=== PATIENT | male | born 1945 | race Asian ===

== ENCOUNTER 2018-01-19 19:40 | Inpatient (IN) | payer MEDICARE, OTHER ==
[~2018-01-19] VITALS: Ht 162.6 cm; Wt 49.0 kg
[~2018-01-19 19:40] MED LIST: ASPI-989 PO; ATOR40TA28 PO; DOCU250C91 PO; FAMO20 PO; METO25 PO; METO25XL PO; MULT-1203 PO; OLOP15OS OU; POLY30DR OU; TAMS-1 PO; WARF2.5 PO
[2018-01-19 20:00] VITALS: BP 143/71
[2018-01-19] MEDS ORDERED: IPRATROPIUM BROMIDE 0.5 MG/2.5 ML NEB SOLUTION NEB PRN (20:15)
[2018-01-19] MEDS ORDERED: DOCUSATE SODIUM 283 MG/5 ML MINI-ENEMA PR PRN (20:15)
[2018-01-19] MEDS: DOCUSATE SODIUM 100 MG CAPSULE GT SCH (21:26)
[2018-01-19] MEDS: DOXYCYCLINE HYCLATE 100 MG CAPSULE GT SCH (21:26)
[2018-01-19] MEDS: SENNA 187 MG TABLET GT SCH (21:26)
[2018-01-19 23:48] LABS: APPEARANCE,URINE CLEAR (CLEAR); BILIRUBIN,URINE NEGATIVE (NEGATIVE); GLUCOSE, URINE (UA) NEGATIVE (NEGATIVE); KETONES,URINE NEGATIVE (NEGATIVE); LEUKOCYTE ESTERASE ,URINE NEGATIVE (NEGATIVE); NITRATE,URINE NEGATIVE (NEGATIVE); OCCULT BLOOD,URINE NEGATIVE (NEGATIVE); PROTEIN,URINE TRACE (NEGATIVE); UROBILINOGEN,URINE 0.2 mg/dL (<=1.0)
[2018-01-19 23:48] LABS: GLUCOMETER DEV NAME(LOC) 2WR 2E; GLUCOSE,POINT OF CARE 114 MG/DL (70-110)
[2018-01-20] VITALS (7 sets, daily range): BP systolic 103–142; BP diastolic 62–74
[2018-01-20] MEDS ORDERED: CARBOXYMETHYLCELLULOSE SODIUM 0.4 ML OPHTHALMIC SOLUTION [PF] OU PRN (00:15)
[2018-01-20 00:21] LABS: BACTERIA,URINE Rare /HPF (None Seen); RBC,URINE 0-2 /HPF (0-2); SQUAMOUS EPITHELIAL CELL,UR Rare /LPF (None Seen); WBC,URINE 0-2 /HPF (0-5); YEAST,URINE Rare /HPF (None Seen)
[2018-01-20] MEDS: LANSOPRAZOLE 30 MG SOLUBLE TABLET NG SCH (05:54)
[2018-01-20] MEDS: METOPROLOL TARTRATE 25 MG TABLET PEG SCH ×4 (05:54→23:43)
[2018-01-20 06:19] LABS: BASOPHILS % (AUTO) 1.1 % (0.0-2.0); EOSINOPHILS % (AUTO) 1.4 % (1.0-6.0); HEMATOCRIT 30.6 % (41-53); HEMOGLOBIN 10.6 g/dL (13.5-17.5); LYMPHOCYTES # (AUTO) 1.4 K/uL (1.0-4.8); LYMPHOCYTES % (AUTO) 12.7 % (22.0-44.0); MEAN CORPUSCULAR HEMOGLOBIN 30.6 pg (26.0-34.0); MEAN CORPUSCULAR HGB CONC 34.5 G/dL (31.0-37.0); MEAN CORPUSCULAR VOLUME 89 fL (80-100); NEUTROPHILS # (AUTO) 8.1 K/uL (1.8-7.7); NEUTROPHILS % (AUTO) 75.8 % (40.0-70.0); PLATELET COUNT (AUTO) 463 K/uL (150-450); RED BLOOD CELL COUNT(AUTO) 3.45 MIL/uL (4.50-5.90)
[2018-01-20 06:43] LABS: GLUCOMETER DEV NAME(LOC) 2WR 1B; GLUCOSE,POINT OF CARE 112 MG/DL (70-110)
[2018-01-20 07:13] LABS: ALBUMIN 2.2 g/dL (3.4-5.0); BILIRUBIN,TOTAL 0.7 mg/dL (0.1-1.0); CALCIUM, TOTAL 8.6 mg/dL (8.8-10.5); CREATININE 1.67 mg/dL (0.60-1.30); POTASSIUM 4.4 mmol/L (3.5-5.1); TOTAL PROTEIN, SERUM 8.2 g/dL (6.4-8.2)
[2018-01-20] MEDS ORDERED: MULTIVITAMINS WITH MINERALS, THERAPEUTIC 15 ML UDCUP GT SCH (09:00)
[2018-01-20] MEDS: LACTOBACILLUS ACIDOPHILUS/BULGARICUS GRANULES PACKET PEG SCH ×3 (09:24→21:03)
[2018-01-20] MEDS: DOXYCYCLINE HYCLATE 100 MG CAPSULE GT SCH ×2 (09:24→21:03)
[2018-01-20] MEDS: DOCUSATE SODIUM 100 MG CAPSULE GT SCH ×2 (09:24→21:02)
[2018-01-20] MEDS: BACLOFEN 10 MG TABLET PEG SCH ×3 (09:25→21:03)
[2018-01-20] MEDS: ATORVASTATIN CALCIUM 20 MG TABLET PEG SCH (09:25)
[2018-01-20] MEDS: MULTIVITAMINS WITH MINERALS, THERAPEUTIC 15 ML UDCUP PEG SCH (09:37)
[2018-01-20 12:35] LABS: GLUCOMETER DEV NAME(LOC) 2WR 1B; GLUCOSE,POINT OF CARE 141 MG/DL (70-110)
[2018-01-20] MEDS ORDERED: PNEUMOCOCCAL VACCINE POLYVALENT 0.5 ML VIAL [PPSV23] IM ONE (16:15)
[2018-01-20 19:09] LABS: GLUCOMETER DEV NAME(LOC) 2WR 1B; GLUCOSE,POINT OF CARE 129 MG/DL (70-110)
[2018-01-20] MEDS: SENNA 187 MG TABLET GT SCH (21:03)
[2018-01-20] MEDS: APIXABAN 2.5 MG TABLET PO SCH (21:03)
[2018-01-20 21:48] LABS: GLUCOMETER DEV NAME(LOC) 2WR 1B; GLUCOSE,POINT OF CARE 124 MG/DL (70-110)
[2018-01-20] MEDS: ACETAMINOPHEN 650 MG/20.3 ML SOLUTION UDCUP GT PRN (23:43)
[2018-01-21 05:45] VITALS: BP 129/65
[2018-01-21] MEDS: METOPROLOL TARTRATE 25 MG TABLET PEG SCH ×4 (05:47→23:30)
[2018-01-21] MEDS: LANSOPRAZOLE 30 MG SOLUBLE TABLET NG SCH (06:24)
[2018-01-21 06:43] LABS: GLUCOMETER DEV NAME(LOC) 2WR 2E; GLUCOSE,POINT OF CARE 110 MG/DL (70-110)
[2018-01-21 07:49] VITALS: BP 130/63
[2018-01-21] MEDS: LACTOBACILLUS ACIDOPHILUS/BULGARICUS GRANULES PACKET PEG SCH ×3 (08:30→20:58)
[2018-01-21] MEDS: ATORVASTATIN CALCIUM 20 MG TABLET PEG SCH (08:30)
[2018-01-21] MEDS: MULTIVITAMINS WITH MINERALS, THERAPEUTIC 15 ML UDCUP PEG SCH (08:30)
[2018-01-21] MEDS: BACLOFEN 10 MG TABLET PEG SCH ×3 (08:30→20:59)
[2018-01-21] MEDS: DOXYCYCLINE HYCLATE 100 MG CAPSULE GT SCH ×2 (08:30→20:59)
[2018-01-21] MEDS: DOCUSATE SODIUM 100 MG CAPSULE GT SCH ×2 (08:30→20:59)
[2018-01-21] MEDS: APIXABAN 2.5 MG TABLET PO SCH ×2 (08:30→20:59)
[2018-01-21 11:36] VITALS: BP 117/59
[2018-01-21 15:19] VITALS: BP 126/71
[2018-01-21] MEDS: SENNA 187 MG TABLET GT SCH (20:59)
[2018-01-21] MEDS: ACETAMINOPHEN 650 MG/20.3 ML SOLUTION UDCUP GT PRN (21:17)
[2018-01-21 23:30] VITALS: BP 120/62
[2018-01-22] VITALS (9 sets, daily range): BP systolic 89–140; BP diastolic 54–77
[2018-01-22] MEDS: LANSOPRAZOLE 30 MG SOLUBLE TABLET NG SCH (06:06)
[2018-01-22] MEDS: METOPROLOL TARTRATE 25 MG TABLET PEG SCH ×3 (06:06→18:35)
[2018-01-22] MEDS: POLYETHYLENE GLYCOL 3350 17 GM PACKET GT PRN (08:43)
[2018-01-22] MEDS: DOCUSATE SODIUM 100 MG CAPSULE GT SCH ×2 (08:43→21:03)
[2018-01-22] MEDS: BACLOFEN 10 MG TABLET PEG SCH ×3 (08:44→21:02)
[2018-01-22] MEDS: MULTIVITAMINS WITH MINERALS, THERAPEUTIC 15 ML UDCUP PEG SCH (08:44)
[2018-01-22] MEDS: LACTOBACILLUS ACIDOPHILUS/BULGARICUS GRANULES PACKET PEG SCH ×3 (08:44→21:03)
[2018-01-22] MEDS: DOXYCYCLINE HYCLATE 100 MG CAPSULE GT SCH ×2 (08:45→22:11)
[2018-01-22] MEDS: ATORVASTATIN CALCIUM 20 MG TABLET PEG SCH (08:45)
[2018-01-22] MEDS: APIXABAN 2.5 MG TABLET PO SCH ×2 (08:45→21:02)
[2018-01-22] MEDS: ACETAMINOPHEN 650 MG/20.3 ML SOLUTION UDCUP GT PRN (12:09)
[2018-01-22] MEDS: SENNA 187 MG TABLET GT SCH (21:02)
[2018-01-23 00:15] VITALS: BP 124/61
[2018-01-23] MEDS: METOPROLOL TARTRATE 25 MG TABLET PEG SCH ×5 (00:21→23:26)
[2018-01-23] MEDS ORDERED: BACL10TA PO (03:37)
[2018-01-23] MEDS ORDERED: APIX5TAB PO (03:37)
[2018-01-23] MEDS: LANSOPRAZOLE 30 MG SOLUBLE TABLET NG SCH (06:07)
[2018-01-23 06:08] VITALS: BP 117/62
[2018-01-23 06:37] LABS: CREATININE 1.58 mg/dL (0.60-1.30); POTASSIUM 4.6 mmol/L (3.5-5.1)
[2018-01-23 07:50] VITALS: BP 121/59
[2018-01-23] MEDS: ATORVASTATIN CALCIUM 20 MG TABLET PEG SCH (10:38)
[2018-01-23] MEDS: POLYETHYLENE GLYCOL 3350 17 GM PACKET GT PRN (10:38)
[2018-01-23] MEDS: MULTIVITAMINS WITH MINERALS, THERAPEUTIC 15 ML UDCUP PEG SCH (10:38)
[2018-01-23] MEDS: DOCUSATE SODIUM 100 MG CAPSULE GT SCH ×2 (10:38→20:46)
[2018-01-23] MEDS: LACTOBACILLUS ACIDOPHILUS/BULGARICUS GRANULES PACKET PEG SCH ×3 (10:38→20:46)
[2018-01-23] MEDS: DOXYCYCLINE HYCLATE 100 MG CAPSULE GT SCH ×2 (10:39→20:46)
[2018-01-23] MEDS: BACLOFEN 10 MG TABLET PEG SCH ×3 (10:39→20:46)
[2018-01-23] MEDS: APIXABAN 2.5 MG TABLET PO SCH ×2 (10:39→20:46)
[2018-01-23 12:01] VITALS: BP 134/73
[2018-01-23] MEDS: ACETAMINOPHEN 650 MG/20.3 ML SOLUTION UDCUP GT PRN (12:04)
[2018-01-23 15:33] VITALS: BP 126/66
[2018-01-23 17:48] VITALS: BP 112/66
[2018-01-23] MEDS: SENNA 187 MG TABLET GT SCH (20:46)
[2018-01-24] VITALS (9 sets, daily range): BP systolic 114–141; BP diastolic 56–83
[2018-01-24] MEDS: ACETAMINOPHEN 650 MG/20.3 ML SOLUTION UDCUP GT PRN ×2 (02:45→16:35)
[2018-01-24] MEDS: METOPROLOL TARTRATE 25 MG TABLET PEG SCH ×4 (05:50→23:27)
[2018-01-24] MEDS: LANSOPRAZOLE 30 MG SOLUBLE TABLET NG SCH (05:50)
[2018-01-24] MEDS: BACLOFEN 10 MG TABLET PEG SCH ×3 (08:14→21:09)
[2018-01-24] MEDS: APIXABAN 2.5 MG TABLET PO SCH ×2 (08:14→21:08)
[2018-01-24] MEDS: MULTIVITAMINS WITH MINERALS, THERAPEUTIC 15 ML UDCUP PEG SCH (08:14)
[2018-01-24] MEDS: ATORVASTATIN CALCIUM 20 MG TABLET PEG SCH (08:14)
[2018-01-24] MEDS: LACTOBACILLUS ACIDOPHILUS/BULGARICUS GRANULES PACKET PEG SCH ×3 (08:15→21:08)
[2018-01-24] MEDS: DOXYCYCLINE HYCLATE 100 MG CAPSULE GT SCH ×2 (08:15→21:09)
[2018-01-24] MEDS: DOCUSATE SODIUM 100 MG CAPSULE GT SCH ×2 (08:15→21:09)
[2018-01-24] MEDS ORDERED: ONDANSETRON HCL 4 MG TABLET PO PRN (10:00)
[2018-01-24] MEDS: SERTRALINE HCL 50 MG TABLET PO SCH (12:50)
[2018-01-24] MEDS: SENNA 187 MG TABLET GT SCH (21:09)
[2018-01-25] VITALS (8 sets, daily range): BP systolic 94–134; BP diastolic 50–71
[2018-01-25] MEDS: ACETAMINOPHEN 650 MG/20.3 ML SOLUTION UDCUP GT PRN (01:41)
[2018-01-25] MEDS: METOPROLOL TARTRATE 25 MG TABLET PEG SCH ×4 (06:16→20:16)
[2018-01-25] MEDS: LANSOPRAZOLE 30 MG SOLUBLE TABLET NG SCH (06:17)
[2018-01-25] MEDS: ATORVASTATIN CALCIUM 20 MG TABLET PEG SCH (09:35)
[2018-01-25] MEDS: BACLOFEN 10 MG TABLET PEG SCH ×3 (09:35→20:17)
[2018-01-25] MEDS: SERTRALINE HCL 50 MG TABLET PO SCH (09:35)
[2018-01-25] MEDS: DOXYCYCLINE HYCLATE 100 MG CAPSULE GT SCH ×2 (09:35→20:16)
[2018-01-25] MEDS: APIXABAN 2.5 MG TABLET PO SCH ×2 (09:35→20:16)
[2018-01-25] MEDS: DOCUSATE SODIUM 100 MG CAPSULE GT SCH ×2 (09:36→20:16)
[2018-01-25] MEDS: LACTOBACILLUS ACIDOPHILUS/BULGARICUS GRANULES PACKET PEG SCH ×3 (09:36→20:15)
[2018-01-25] MEDS: MULTIVITAMINS WITH MINERALS, THERAPEUTIC 15 ML UDCUP PEG SCH (09:36)
[2018-01-25] MEDS: METOCLOPRAMIDE HCL 5 MG TABLET PO SCH ×2 (15:26→20:15)
[2018-01-25] MEDS: SENNA 187 MG TABLET GT SCH (20:16)
[2018-01-26] MEDS: LANSOPRAZOLE 30 MG SOLUBLE TABLET NG SCH (06:00)
[2018-01-26 07:20] VITALS: BP 135/74
[2018-01-26] MEDS: ATORVASTATIN CALCIUM 20 MG TABLET PEG SCH (08:15)
[2018-01-26] MEDS: MULTIVITAMINS WITH MINERALS, THERAPEUTIC 15 ML UDCUP PEG SCH (08:15)
[2018-01-26] MEDS: METOPROLOL TARTRATE 25 MG TABLET PEG SCH ×4 (08:15→20:30)
[2018-01-26] MEDS: DOCUSATE SODIUM 100 MG CAPSULE GT SCH ×2 (08:15→20:30)
[2018-01-26] MEDS: BACLOFEN 10 MG TABLET PEG SCH ×3 (08:15→20:30)
[2018-01-26] MEDS: SERTRALINE HCL 50 MG TABLET PO SCH (08:16)
[2018-01-26] MEDS: DOXYCYCLINE HYCLATE 100 MG CAPSULE GT SCH ×2 (08:16→20:30)
[2018-01-26] MEDS: APIXABAN 2.5 MG TABLET PO SCH ×2 (08:16→20:30)
[2018-01-26] MEDS: METOCLOPRAMIDE HCL 5 MG TABLET PO SCH ×3 (08:16→20:30)
[2018-01-26] MEDS: LACTOBACILLUS ACIDOPHILUS/BULGARICUS GRANULES PACKET PEG SCH ×3 (08:17→20:30)
[2018-01-26 13:20] VITALS: BP 111/66
[2018-01-26 13:24] VITALS: BP 104/56
[2018-01-26 15:42] VITALS: BP_SYST 135; BP_DIAS 7; BP_DIAS 70
[2018-01-26] MEDS: SENNA 187 MG TABLET GT SCH (20:30)
[2018-01-26 21:00] VITALS: BP 128/61
[2018-01-27 01:02] VITALS: BP 122/63
[2018-01-27] MEDS: LANSOPRAZOLE 30 MG SOLUBLE TABLET NG SCH (05:42)
[2018-01-27 07:45] VITALS: BP 136/65
[2018-01-27] MEDS: METOPROLOL TARTRATE 25 MG TABLET PEG SCH ×4 (09:07→21:08)
[2018-01-27] MEDS: ATORVASTATIN CALCIUM 20 MG TABLET PEG SCH (09:07)
[2018-01-27] MEDS: APIXABAN 2.5 MG TABLET PO SCH ×2 (09:07→21:08)
[2018-01-27] MEDS: DOXYCYCLINE HYCLATE 100 MG CAPSULE GT SCH ×2 (09:08→21:08)
[2018-01-27] MEDS: BACLOFEN 10 MG TABLET PEG SCH ×3 (09:08→21:08)
[2018-01-27] MEDS: SERTRALINE HCL 50 MG TABLET PO SCH (09:08)
[2018-01-27] MEDS: METOCLOPRAMIDE HCL 5 MG TABLET PO SCH ×3 (09:08→21:08)
[2018-01-27] MEDS: LACTOBACILLUS ACIDOPHILUS/BULGARICUS GRANULES PACKET PEG SCH ×3 (09:08→21:08)
[2018-01-27] MEDS: DOCUSATE SODIUM 100 MG CAPSULE GT SCH ×2 (09:08→21:08)
[2018-01-27] MEDS: MULTIVITAMINS WITH MINERALS, THERAPEUTIC 15 ML UDCUP PEG SCH (09:08)
[2018-01-27 13:40] VITALS: BP 134/60
[2018-01-27 18:20] VITALS: BP 144/65
[2018-01-27 21:06] VITALS: BP 123/75
[2018-01-27] MEDS: SENNA 187 MG TABLET GT SCH (21:08)
[2018-01-28 00:17] VITALS: BP 135/61
[2018-01-28] MEDS: LANSOPRAZOLE 30 MG SOLUBLE TABLET NG SCH (06:09)
[2018-01-28 07:05] VITALS: BP 130/66
[2018-01-28] MEDS: DOCUSATE SODIUM 100 MG CAPSULE GT SCH ×2 (09:31→21:23)
[2018-01-28] MEDS: DOXYCYCLINE HYCLATE 100 MG CAPSULE GT SCH ×2 (09:32→21:23)
[2018-01-28] MEDS: MULTIVITAMINS WITH MINERALS, THERAPEUTIC 15 ML UDCUP PEG SCH (09:32)
[2018-01-28] MEDS: LACTOBACILLUS ACIDOPHILUS/BULGARICUS GRANULES PACKET PEG SCH ×3 (09:32→21:25)
[2018-01-28] MEDS: BACLOFEN 10 MG TABLET PEG SCH ×3 (09:32→21:23)
[2018-01-28] MEDS: ATORVASTATIN CALCIUM 20 MG TABLET PEG SCH (09:32)
[2018-01-28] MEDS: METOCLOPRAMIDE HCL 5 MG TABLET PO SCH ×3 (09:32→21:23)
[2018-01-28] MEDS: SERTRALINE HCL 50 MG TABLET PO SCH (09:33)
[2018-01-28] MEDS: METOPROLOL TARTRATE 25 MG TABLET PEG SCH ×4 (09:33→21:23)
[2018-01-28] MEDS: APIXABAN 2.5 MG TABLET PO SCH ×2 (09:33→21:23)
[2018-01-28] MEDS ORDERED: ONDANSETRON HCL 4 MG/2 ML VIAL IVP PRN (12:45)
[2018-01-28] MEDS ORDERED: ACETAMINOPHEN 325 MG TABLET PO PRN (12:45)
[2018-01-28] MEDS ORDERED: IPRATROPIUM BROMIDE 0.5 MG/2.5 ML NEB SOLUTION NEB PRN (12:45)
[2018-01-28] MEDS ORDERED: 0.9% SODIUM CHLORIDE 10 ML SYRINGE IVP PRN (12:45)
[2018-01-28 13:50] VITALS: BP 138/70
[2018-01-28 15:45] VITALS: BP 129/66
[2018-01-28] MEDS ORDERED: RAMIPRIL 1.25 MG CAPSULE PO SCH (21:00)
[2018-01-28 21:20] VITALS: BP 124/72
[2018-01-28] MEDS: SENNA 187 MG TABLET GT SCH (21:23)
[2018-01-29 01:39] VITALS: BP 128/70
[2018-01-29] MEDS: LANSOPRAZOLE 30 MG SOLUBLE TABLET NG SCH (06:18)
[2018-01-29 07:30] VITALS: BP 122/65
[2018-01-29 07:32] LABS: BASOPHILS % (AUTO) 2.5 % (0.0-2.0); EOSINOPHILS % (AUTO) 3.5 % (1.0-6.0); HEMATOCRIT 32.5 % (41-53); LYMPHOCYTES # (AUTO) 1.6 K/uL (1.0-4.8); LYMPHOCYTES % (AUTO) 21.4 % (22.0-44.0); MEAN CORPUSCULAR HEMOGLOBIN 29.6 pg (26.0-34.0); MEAN CORPUSCULAR HGB CONC 33.7 G/dL (31.0-37.0); MEAN CORPUSCULAR VOLUME 88 fL (80-100); MONOCYTES # (AUTO) 0.8 K/uL (0.1-1.0); MONOCYTES % (AUTO) 10.8 % (2.0-9.0); NEUTROPHILS # (AUTO) 4.7 K/uL (1.8-7.7); NEUTROPHILS % (AUTO) 61.8 % (40.0-70.0); PLATELET COUNT (AUTO) 395 K/uL (150-450); RED BLOOD CELL COUNT(AUTO) 3.71 MIL/uL (4.50-5.90); RED CELL DISTRIBUTION WIDTH 15.2 % (11.5-14.5)
[2018-01-29 07:40] LABS: HEMOGLOBIN A1C 5.7 % (4.5-6.2)
[2018-01-29 07:59] LABS: CHOL/HDL RATIO 2.3 (4.2-7.3); CREATININE 1.56 mg/dL (0.60-1.30); PHOSPHORUS 3.4 mg/dL (2.5-4.9); POTASSIUM 4.2 mmol/L (3.5-5.1); THYROID STIMULATING HORMONE 1.84 uIU/mL (0.36-3.74)
[2018-01-29 08:05] LABS: % IRON SATURATION 23.6 % (30-44); PROSTATE SPECIFIC ANTIGEN 0.29 ng/mL (0.00-4.00)
[2018-01-29] MEDS: DOCUSATE SODIUM 100 MG CAPSULE GT SCH ×2 (08:21→20:57)
[2018-01-29] MEDS: SERTRALINE HCL 50 MG TABLET PO SCH (08:21)
[2018-01-29] MEDS: METOCLOPRAMIDE HCL 5 MG TABLET PO SCH ×3 (08:21→20:57)
[2018-01-29] MEDS: DOXYCYCLINE HYCLATE 100 MG CAPSULE GT SCH (08:21)
[2018-01-29] MEDS: APIXABAN 2.5 MG TABLET PO SCH ×2 (08:21→20:57)
[2018-01-29] MEDS: METOPROLOL TARTRATE 25 MG TABLET PEG SCH ×4 (08:21→20:57)
[2018-01-29] MEDS: BACLOFEN 10 MG TABLET PEG SCH ×3 (08:21→20:57)
[2018-01-29] MEDS: LACTOBACILLUS ACIDOPHILUS/BULGARICUS GRANULES PACKET PEG SCH ×3 (08:21→20:57)
[2018-01-29] MEDS: MULTIVITAMINS WITH MINERALS, THERAPEUTIC 15 ML UDCUP PEG SCH (08:22)
[2018-01-29] MEDS: ATORVASTATIN CALCIUM 20 MG TABLET PEG SCH (08:23)
[2018-01-29 09:22] LABS: ERYTHROCYTE SEDIMENTATION RATE 96 MM/HR (0-15)
[2018-01-29 16:10] VITALS: BP 126/73
[2018-01-29] MEDS: SENNA 187 MG TABLET GT SCH (20:57)
[2018-01-29 20:59] VITALS: BP 136/64
[2018-01-30 06:00] VITALS: BP 130/62
[2018-01-30] MEDS: LANSOPRAZOLE 30 MG SOLUBLE TABLET NG SCH (06:10)
[2018-01-30 07:38] VITALS: BP 134/74
[2018-01-30 09:30] LABS: ALBUMIN 2.6 g/dL (3.4-5.0); BILIRUBIN,TOTAL 0.4 mg/dL (0.1-1.0); CALCIUM, TOTAL 8.7 mg/dL (8.8-10.5); CREATININE 1.55 mg/dL (0.60-1.30); POTASSIUM 4.1 mmol/L (3.5-5.1); TOTAL PROTEIN, SERUM 8.2 g/dL (6.4-8.2)
[2018-01-30] MEDS: SERTRALINE HCL 50 MG TABLET PO SCH (09:33)
[2018-01-30] MEDS: ATORVASTATIN CALCIUM 20 MG TABLET PEG SCH (09:33)
[2018-01-30] MEDS: APIXABAN 2.5 MG TABLET PO SCH ×2 (09:34→20:45)
[2018-01-30] MEDS: MULTIVITAMINS WITH MINERALS, THERAPEUTIC 15 ML UDCUP PEG SCH (09:34)
[2018-01-30] MEDS: BACLOFEN 10 MG TABLET PEG SCH ×3 (09:34→20:45)
[2018-01-30] MEDS: LACTOBACILLUS ACIDOPHILUS/BULGARICUS GRANULES PACKET PEG SCH ×3 (09:34→20:44)
[2018-01-30] MEDS: DOCUSATE SODIUM 100 MG CAPSULE GT SCH ×2 (09:34→20:45)
[2018-01-30] MEDS: METOPROLOL TARTRATE 25 MG TABLET PEG SCH ×4 (09:34→20:44)
[2018-01-30] MEDS: METOCLOPRAMIDE HCL 5 MG TABLET PO SCH ×3 (09:34→20:45)
[2018-01-30 13:50] VITALS: BP 132/69
[2018-01-30 15:24] VITALS: BP 137/71
[2018-01-30 20:45] VITALS: BP 125/69
[2018-01-30] MEDS: SENNA 187 MG TABLET GT SCH (20:45)
[2018-01-31] VITALS (7 sets, daily range): BP systolic 98–141; BP diastolic 63–77
[2018-01-31] MEDS: LANSOPRAZOLE 30 MG SOLUBLE TABLET NG SCH (06:22)
[2018-01-31 07:23] LABS: ALBUMIN 2.6 g/dL (3.4-5.0); BILIRUBIN,TOTAL 0.5 mg/dL (0.1-1.0); CALCIUM, TOTAL 9.1 mg/dL (8.8-10.5); CREATININE 1.54 mg/dL (0.60-1.30); POTASSIUM 4.1 mmol/L (3.5-5.1); TOTAL PROTEIN, SERUM 8.3 g/dL (6.4-8.2)
[2018-01-31] MEDS: BACLOFEN 10 MG TABLET PEG SCH ×3 (09:26→20:24)
[2018-01-31] MEDS: SERTRALINE HCL 50 MG TABLET PO SCH (09:26)
[2018-01-31] MEDS: LACTOBACILLUS ACIDOPHILUS/BULGARICUS GRANULES PACKET PEG SCH ×3 (09:26→20:24)
[2018-01-31] MEDS: APIXABAN 2.5 MG TABLET PO SCH ×2 (09:26→20:24)
[2018-01-31] MEDS: MULTIVITAMINS WITH MINERALS, THERAPEUTIC 15 ML UDCUP PEG SCH (09:26)
[2018-01-31] MEDS: DOCUSATE SODIUM 100 MG CAPSULE GT SCH ×2 (09:27→20:24)
[2018-01-31] MEDS: ATORVASTATIN CALCIUM 20 MG TABLET PEG SCH (09:27)
[2018-01-31] MEDS: METOPROLOL TARTRATE 25 MG TABLET PEG SCH ×4 (09:27→20:24)
[2018-01-31] MEDS: METOCLOPRAMIDE HCL 5 MG TABLET PO SCH ×2 (09:27→16:57)
[2018-01-31] MEDS: SENNA 187 MG TABLET GT SCH (20:24)
[2018-01-31] MEDS ORDERED: ONDANSETRON HCL 4 MG TABLET GT PRN (20:42)
[2018-01-31] MEDS: METOCLOPRAMIDE 10 MG/10 ML GT SCH (21:22)
[2018-01-31] MEDS: [UNRECOGNIZED DRUG - OTHER] GT SCH (21:22)
[2018-01-31] MEDS: APIXABAN 2.5 MG TABLET GT SCH (21:23)
[2018-02-01 00:09] VITALS: BP 119/53
[2018-02-01] MEDS: LANSOPRAZOLE 30 MG SOLUBLE TABLET NG SCH (05:49)
[2018-02-01 07:30] LABS: ALBUMIN 2.6 g/dL (3.4-5.0); BILIRUBIN,TOTAL 0.5 mg/dL (0.1-1.0); CALCIUM, TOTAL 8.9 mg/dL (8.8-10.5); CREATININE 1.65 mg/dL (0.60-1.30); POTASSIUM 4.1 mmol/L (3.5-5.1); TOTAL PROTEIN, SERUM 8.1 g/dL (6.4-8.2)
[2018-02-01 07:40] VITALS: BP 122/59
[2018-02-01] MEDS: DOCUSATE SODIUM 100 MG CAPSULE GT SCH ×2 (08:41→22:01)
[2018-02-01] MEDS: LACTOBACILLUS ACIDOPHILUS/BULGARICUS GRANULES PACKET PEG SCH ×3 (08:41→22:00)
[2018-02-01] MEDS: MULTIVITAMINS WITH MINERALS, THERAPEUTIC 15 ML UDCUP PEG SCH (08:41)
[2018-02-01] MEDS: ATORVASTATIN CALCIUM 20 MG TABLET PEG SCH (08:42)
[2018-02-01] MEDS: BACLOFEN 10 MG TABLET PEG SCH ×3 (08:42→22:01)
[2018-02-01] MEDS: APIXABAN 2.5 MG TABLET GT SCH ×2 (08:42→22:00)
[2018-02-01] MEDS: SERTRALINE HCL 50 MG TABLET GT SCH (08:42)
[2018-02-01] MEDS: METOCLOPRAMIDE 10 MG/10 ML GT SCH ×3 (08:42→22:01)
[2018-02-01] MEDS: [UNRECOGNIZED DRUG - OTHER] GT SCH ×3 (08:42→22:01)
[2018-02-01] MEDS: METOPROLOL TARTRATE 25 MG TABLET PEG SCH ×4 (08:42→22:00)
[2018-02-01 13:50] VITALS: BP 126/66
[2018-02-01 15:00] VITALS: BP 131/71
[2018-02-01 15:11] VITALS: BP 131/71
[2018-02-01] MEDS: CETIRIZINE HCL 10 MG TABLET PO SCH (15:49)
[2018-02-01] MEDS: SENNA 187 MG TABLET GT SCH (22:01)
[2018-02-02 00:35] VITALS: BP 116/58
[2018-02-02] MEDS: LANSOPRAZOLE 30 MG SOLUBLE TABLET NG SCH (06:01)
[2018-02-02 06:53] LABS: ALBUMIN 2.6 g/dL (3.4-5.0); BILIRUBIN,TOTAL 0.4 mg/dL (0.1-1.0); CALCIUM, TOTAL 8.8 mg/dL (8.8-10.5); CREATININE 1.55 mg/dL (0.60-1.30); POTASSIUM 4.1 mmol/L (3.5-5.1); TOTAL PROTEIN, SERUM 8.1 g/dL (6.4-8.2)
[2018-02-02 07:13] VITALS: BP 123/64
[2018-02-02] MEDS: LACTOBACILLUS ACIDOPHILUS/BULGARICUS GRANULES PACKET PEG SCH ×3 (07:56→21:34)
[2018-02-02] MEDS: METOPROLOL TARTRATE 25 MG TABLET PEG SCH ×4 (07:57→21:33)
[2018-02-02] MEDS: ATORVASTATIN CALCIUM 20 MG TABLET PEG SCH (07:57)
[2018-02-02] MEDS: SERTRALINE HCL 50 MG TABLET GT SCH (07:57)
[2018-02-02] MEDS: CETIRIZINE HCL 10 MG TABLET PO SCH (07:57)
[2018-02-02] MEDS: DOCUSATE SODIUM 100 MG CAPSULE GT SCH ×2 (07:57→21:00)
[2018-02-02] MEDS: MULTIVITAMINS WITH MINERALS, THERAPEUTIC 15 ML UDCUP PEG SCH (07:57)
[2018-02-02] MEDS: METOCLOPRAMIDE 10 MG/10 ML GT SCH ×3 (07:57→21:33)
[2018-02-02] MEDS: BACLOFEN 10 MG TABLET PEG SCH ×3 (07:57→21:34)
[2018-02-02] MEDS: [UNRECOGNIZED DRUG - OTHER] GT SCH ×3 (07:57→21:33)
[2018-02-02] MEDS: APIXABAN 2.5 MG TABLET GT SCH ×2 (07:57→21:34)
[2018-02-02 13:15] VITALS: BP 129/67
[2018-02-02 15:32] VITALS: BP 126/68
[2018-02-02] MEDS: SENNA 187 MG TABLET GT SCH (21:00)
[2018-02-02 21:30] VITALS: BP 137/72
[2018-02-03] VITALS (8 sets, daily range): BP systolic 103–139; BP diastolic 58–72
[2018-02-03] MEDS: LANSOPRAZOLE 30 MG SOLUBLE TABLET NG SCH (05:31)
[2018-02-03 07:33] LABS: ALBUMIN 2.6 g/dL (3.4-5.0); BILIRUBIN,TOTAL 0.4 mg/dL (0.1-1.0); CALCIUM, TOTAL 8.9 mg/dL (8.8-10.5); CREATININE 1.55 mg/dL (0.60-1.30); POTASSIUM 4.1 mmol/L (3.5-5.1); TOTAL PROTEIN, SERUM 7.9 g/dL (6.4-8.2)
[2018-02-03] MEDS: METOPROLOL TARTRATE 25 MG TABLET PEG SCH ×4 (09:00→21:01)
[2018-02-03] MEDS: DOCUSATE SODIUM 100 MG CAPSULE GT SCH ×2 (09:35→21:01)
[2018-02-03] MEDS: MULTIVITAMINS WITH MINERALS, THERAPEUTIC 15 ML UDCUP PEG SCH (09:35)
[2018-02-03] MEDS: BACLOFEN 10 MG TABLET PEG SCH ×3 (09:35→21:01)
[2018-02-03] MEDS: ATORVASTATIN CALCIUM 20 MG TABLET PEG SCH (09:35)
[2018-02-03] MEDS: SERTRALINE HCL 50 MG TABLET GT SCH (09:35)
[2018-02-03] MEDS: CETIRIZINE HCL 10 MG TABLET PO SCH (09:35)
[2018-02-03] MEDS: APIXABAN 2.5 MG TABLET GT SCH ×2 (09:35→21:01)
[2018-02-03] MEDS: LACTOBACILLUS ACIDOPHILUS/BULGARICUS GRANULES PACKET PEG SCH ×3 (09:36→21:01)
[2018-02-03] MEDS: [UNRECOGNIZED DRUG - OTHER] GT SCH ×3 (09:38→21:01)
[2018-02-03] MEDS: METOCLOPRAMIDE 10 MG/10 ML GT SCH ×3 (09:38→21:01)
[2018-02-03] MEDS: SENNA 187 MG TABLET GT SCH (21:01)
[2018-02-04 03:21] VITALS: BP 124/65
[2018-02-04 07:21] LABS: ALBUMIN 2.6 g/dL (3.4-5.0); BILIRUBIN,TOTAL 0.4 mg/dL (0.1-1.0); CALCIUM, TOTAL 8.5 mg/dL (8.8-10.5); CREATININE 1.36 mg/dL (0.60-1.30); POTASSIUM 4.2 mmol/L (3.5-5.1); TOTAL PROTEIN, SERUM 7.8 g/dL (6.4-8.2)
[2018-02-04 08:00] VITALS: BP 133/78
[2018-02-04] MEDS: ATORVASTATIN CALCIUM 20 MG TABLET PEG SCH (09:09)
[2018-02-04] MEDS: APIXABAN 2.5 MG TABLET GT SCH ×2 (09:09→20:43)
[2018-02-04] MEDS: DOCUSATE SODIUM 100 MG CAPSULE GT SCH ×2 (09:09→20:45)
[2018-02-04] MEDS: METOPROLOL TARTRATE 25 MG TABLET PEG SCH ×4 (09:09→20:43)
[2018-02-04] MEDS: CETIRIZINE HCL 10 MG TABLET PO SCH (09:09)
[2018-02-04] MEDS: [UNRECOGNIZED DRUG - OTHER] GT SCH ×3 (09:10→20:43)
[2018-02-04] MEDS: BACLOFEN 10 MG TABLET PEG SCH ×3 (09:10→20:43)
[2018-02-04] MEDS: METOCLOPRAMIDE 10 MG/10 ML GT SCH ×3 (09:10→20:43)
[2018-02-04] MEDS: LACTOBACILLUS ACIDOPHILUS/BULGARICUS GRANULES PACKET PEG SCH ×3 (09:10→20:44)
[2018-02-04] MEDS: SERTRALINE HCL 50 MG TABLET GT SCH (09:10)
[2018-02-04] MEDS: LANSOPRAZOLE 30 MG SOLUBLE TABLET NG SCH (09:11)
[2018-02-04] MEDS: MULTIVITAMINS WITH MINERALS, THERAPEUTIC 15 ML UDCUP PEG SCH (09:13)
[2018-02-04 13:32] VITALS: BP 127/74
[2018-02-04 15:35] VITALS: BP 125/76
[2018-02-04 20:40] VITALS: BP 133/75
[2018-02-04] MEDS: SENNA 187 MG TABLET GT SCH (20:43)
[2018-02-05 00:02] VITALS: BP 125/63
[2018-02-05] MEDS: LANSOPRAZOLE 30 MG SOLUBLE TABLET NG SCH (05:32)
[2018-02-05 07:10] VITALS: BP 144/73
[2018-02-05] MEDS: SERTRALINE HCL 50 MG TABLET GT SCH (08:31)
[2018-02-05] MEDS: MULTIVITAMINS WITH MINERALS, THERAPEUTIC 15 ML UDCUP PEG SCH (08:31)
[2018-02-05] MEDS: [UNRECOGNIZED DRUG - OTHER] GT SCH ×2 (08:31→16:14)
[2018-02-05] MEDS: METOCLOPRAMIDE 10 MG/10 ML GT SCH ×2 (08:31→16:14)
[2018-02-05] MEDS: CETIRIZINE HCL 10 MG TABLET PO SCH (08:31)
[2018-02-05] MEDS: LACTOBACILLUS ACIDOPHILUS/BULGARICUS GRANULES PACKET PEG SCH ×2 (08:31→16:13)
[2018-02-05] MEDS: ATORVASTATIN CALCIUM 20 MG TABLET PEG SCH (08:31)
[2018-02-05] MEDS: DOCUSATE SODIUM 100 MG CAPSULE GT SCH (08:32)
[2018-02-05] MEDS: METOPROLOL TARTRATE 25 MG TABLET PEG SCH ×3 (08:32→16:14)
[2018-02-05] MEDS: BACLOFEN 10 MG TABLET PEG SCH ×2 (08:32→16:13)
[2018-02-05] MEDS: APIXABAN 2.5 MG TABLET GT SCH (08:32)
[2018-02-05 12:31] VITALS: BP 133/72
[2018-02-05 15:45] VITALS: BP 130/74
[2018-02-05] MEDS ORDERED: POLYETHYLENE GLYCOL 3350 17 GM PACKET PO PRN (16:30)
[2018-02-05] MEDS ORDERED: ONDANSETRON HCL 4 MG TABLET PO PRN (16:42)
[2018-02-05 21:04] VITALS: BP 116/60
[2018-02-05] MEDS: BACLOFEN 10 MG TABLET PO SCH (21:06)
[2018-02-05] MEDS: METOPROLOL TARTRATE 25 MG TABLET PO SCH (21:06)
[2018-02-05] MEDS: LACTOBACILLUS ACIDOPHILUS/BULGARICUS GRANULES PACKET PO SCH (21:06)
[2018-02-05] MEDS: SENNA 187 MG TABLET PO SCH (21:07)
[2018-02-05] MEDS: DOCUSATE SODIUM 100 MG CAPSULE PO SCH (21:07)
[2018-02-05] MEDS: APIXABAN 2.5 MG TABLET PO SCH (21:07)
[2018-02-05] MEDS: METOCLOPRAMIDE HCL 5 MG TABLET PO SCH (21:09)
[2018-02-06] MEDS: LANSOPRAZOLE 30 MG CAPSULE PO SCH (06:22)
[2018-02-06 06:35] VITALS: BP 125/67
[2018-02-06 07:34] VITALS: BP 122/70
[2018-02-06] MEDS: MULTIVITAMINS WITH MINERALS, THERAPEUTIC TABLET PO SCH (08:05)
[2018-02-06] MEDS: ATORVASTATIN CALCIUM 20 MG TABLET PO SCH (08:05)
[2018-02-06] MEDS: SERTRALINE HCL 50 MG TABLET PO SCH (08:05)
[2018-02-06] MEDS: DOCUSATE SODIUM 100 MG CAPSULE PO SCH ×2 (08:05→21:17)
[2018-02-06] MEDS: CETIRIZINE HCL 10 MG TABLET PO SCH (08:05)
[2018-02-06] MEDS: LACTOBACILLUS ACIDOPHILUS/BULGARICUS GRANULES PACKET PO SCH ×3 (08:06→21:17)
[2018-02-06] MEDS: METOCLOPRAMIDE HCL 5 MG TABLET PO SCH ×3 (08:06→21:18)
[2018-02-06] MEDS: BACLOFEN 10 MG TABLET PO SCH ×3 (08:06→21:18)
[2018-02-06] MEDS: METOPROLOL TARTRATE 25 MG TABLET PO SCH ×4 (08:06→21:18)
[2018-02-06] MEDS: APIXABAN 2.5 MG TABLET PO SCH ×2 (08:06→21:17)
[2018-02-06 13:12] VITALS: BP 128/71
[2018-02-06 15:00] VITALS: BP 124/71
[2018-02-06 15:55] VITALS: BP 127/74
[2018-02-06] MEDS: SENNA 187 MG TABLET PO SCH (21:17)
[2018-02-07] VITALS: BP 116/59
[2018-02-07] MEDS: LANSOPRAZOLE 30 MG CAPSULE PO SCH (06:36)
[2018-02-07 07:45] VITALS: BP 123/67
[2018-02-07] MEDS: ATORVASTATIN CALCIUM 20 MG TABLET PO SCH (08:16)
[2018-02-07] MEDS: SERTRALINE HCL 50 MG TABLET PO SCH (08:16)
[2018-02-07] MEDS: BACLOFEN 10 MG TABLET PO SCH ×3 (08:16→20:52)
[2018-02-07] MEDS: LACTOBACILLUS ACIDOPHILUS/BULGARICUS GRANULES PACKET PO SCH ×3 (08:16→20:52)
[2018-02-07] MEDS: DOCUSATE SODIUM 100 MG CAPSULE PO SCH ×2 (08:16→20:52)
[2018-02-07] MEDS: MULTIVITAMINS WITH MINERALS, THERAPEUTIC TABLET PO SCH (08:16)
[2018-02-07] MEDS: METOPROLOL TARTRATE 25 MG TABLET PO SCH ×4 (08:16→20:55)
[2018-02-07] MEDS: APIXABAN 2.5 MG TABLET PO SCH ×2 (08:16→20:52)
[2018-02-07] MEDS: CETIRIZINE HCL 10 MG TABLET PO SCH (08:17)
[2018-02-07] MEDS: METOCLOPRAMIDE HCL 5 MG TABLET PO SCH ×3 (08:17→20:51)
[2018-02-07 12:55] VITALS: BP 129/87
[2018-02-07 16:15] VITALS: BP 119/65
[2018-02-07 20:49] VITALS: BP 128/77
[2018-02-07] MEDS: SENNA 187 MG TABLET PO SCH (20:51)
[2018-02-07] MEDS: MIRTAZAPINE 15 MG TABLET PO SCH (20:51)
[2018-02-07 23:00] VITALS: BP 117/65
[2018-02-08] MEDS: ACETAMINOPHEN 325 MG TABLET PO PRN (04:24)
[2018-02-08] MEDS: LANSOPRAZOLE 30 MG CAPSULE PO SCH (04:24)
[2018-02-08] MEDS: DOCUSATE SODIUM 100 MG CAPSULE PO SCH ×2 (08:05→20:52)
[2018-02-08] MEDS: APIXABAN 2.5 MG TABLET PO SCH ×2 (08:06→20:53)
[2018-02-08] MEDS: ATORVASTATIN CALCIUM 20 MG TABLET PO SCH (08:06)
[2018-02-08] MEDS: METOCLOPRAMIDE HCL 5 MG TABLET PO SCH ×3 (08:06→20:53)
[2018-02-08] MEDS: BACLOFEN 10 MG TABLET PO SCH ×3 (08:06→20:53)
[2018-02-08] MEDS: MULTIVITAMINS WITH MINERALS, THERAPEUTIC TABLET PO SCH (08:06)
[2018-02-08] MEDS: METOPROLOL TARTRATE 25 MG TABLET PO SCH ×4 (08:06→20:53)
[2018-02-08] MEDS: CETIRIZINE HCL 10 MG TABLET PO SCH (08:06)
[2018-02-08] MEDS: LACTOBACILLUS ACIDOPHILUS/BULGARICUS GRANULES PACKET PO SCH ×3 (08:06→20:53)
[2018-02-08 08:20] VITALS: BP 134/66
[2018-02-08 13:08] LABS: GLUCOMETER DEV NAME(LOC) 2WR 2E; GLUCOSE,POINT OF CARE 142 MG/DL (70-110)
[2018-02-08 13:43] VITALS: BP 129/72
[2018-02-08 16:21] VITALS: BP 121/61
[2018-02-08] MEDS: SENNA 187 MG TABLET PO SCH (20:53)
[2018-02-08] MEDS: MIRTAZAPINE 15 MG TABLET PO SCH (20:53)
[2018-02-08 21:00] VITALS: BP 125/68
[2018-02-09] MEDS: LANSOPRAZOLE 30 MG CAPSULE PO SCH (06:19)
[2018-02-09 06:23] VITALS: BP 126/65
[2018-02-09 07:30] VITALS: BP 118/75
[2018-02-09] MEDS: METOPROLOL TARTRATE 25 MG TABLET PO SCH ×4 (09:00→20:52)
[2018-02-09] MEDS: METOCLOPRAMIDE HCL 5 MG TABLET PO SCH ×3 (09:20→20:55)
[2018-02-09] MEDS: ATORVASTATIN CALCIUM 20 MG TABLET PO SCH (09:20)
[2018-02-09] MEDS: MULTIVITAMINS WITH MINERALS, THERAPEUTIC TABLET PO SCH (09:20)
[2018-02-09] MEDS: CETIRIZINE HCL 10 MG TABLET PO SCH (09:20)
[2018-02-09] MEDS: APIXABAN 2.5 MG TABLET PO SCH ×2 (09:20→20:53)
[2018-02-09] MEDS: BACLOFEN 10 MG TABLET PO SCH ×3 (09:21→20:53)
[2018-02-09] MEDS: DOCUSATE SODIUM 100 MG CAPSULE PO SCH ×2 (09:21→20:53)
[2018-02-09 15:20] VITALS: BP 131/85
[2018-02-09] MEDS: SENNA 187 MG TABLET PO SCH (20:52)
[2018-02-09 20:53] VITALS: BP 121/69
[2018-02-09] MEDS: MIRTAZAPINE 15 MG TABLET PO SCH (20:53)
[2018-02-10 01:07] VITALS: BP 127/66
[2018-02-10] MEDS: LANSOPRAZOLE 30 MG CAPSULE PO SCH (06:03)
[2018-02-10] MEDS: ATORVASTATIN CALCIUM 20 MG TABLET PO SCH (08:13)
[2018-02-10] MEDS: BACLOFEN 10 MG TABLET PO SCH ×3 (08:13→20:57)
[2018-02-10] MEDS: CETIRIZINE HCL 10 MG TABLET PO SCH (08:13)
[2018-02-10] MEDS: METOPROLOL TARTRATE 25 MG TABLET PO SCH ×4 (08:13→20:57)
[2018-02-10] MEDS: METOCLOPRAMIDE HCL 5 MG TABLET PO SCH (08:13)
[2018-02-10] MEDS: APIXABAN 2.5 MG TABLET PO SCH ×2 (08:13→20:57)
[2018-02-10] MEDS: DOCUSATE SODIUM 100 MG CAPSULE PO SCH ×2 (08:13→20:57)
[2018-02-10] MEDS: MULTIVITAMINS WITH MINERALS, THERAPEUTIC TABLET PO SCH (08:13)
[2018-02-10] MEDS: LACTOBACILLUS ACIDOPHILUS/BULGARICUS TABLET PO SCH ×3 (08:13→20:57)
[2018-02-10 08:15] VITALS: BP 131/81
[2018-02-10] MEDS: ACETAMINOPHEN 325 MG TABLET PO PRN (08:32)
[2018-02-10 10:56] LABS: APPEARANCE,URINE CLEAR (CLEAR); BILIRUBIN,URINE NEGATIVE (NEGATIVE); GLUCOSE, URINE (UA) NEGATIVE (NEGATIVE); KETONES,URINE NEGATIVE (NEGATIVE); LEUKOCYTE ESTERASE ,URINE NEGATIVE (NEGATIVE); NITRATE,URINE NEGATIVE (NEGATIVE); OCCULT BLOOD,URINE NEGATIVE (NEGATIVE); PROTEIN,URINE TRACE (NEGATIVE); UROBILINOGEN,URINE 0.2 mg/dL (<=1.0)
[2018-02-10 11:33] LABS: BACTERIA,URINE None Seen /HPF (None Seen); RBC,URINE 0-2 /HPF (0-2); SQUAMOUS EPITHELIAL CELL,UR Rare /LPF (None Seen); WBC,URINE 0-2 /HPF (0-5)
[2018-02-10 13:40] VITALS: BP 132/69
[2018-02-10 15:35] VITALS: BP 117/62
[2018-02-10 16:11] VITALS: BP 127/69
[2018-02-10 20:53] VITALS: BP 123/59
[2018-02-10] MEDS: MIRTAZAPINE 15 MG TABLET PO SCH (20:57)
[2018-02-10] MEDS: SENNA 187 MG TABLET PO SCH (20:57)
[2018-02-11] VITALS: BP 131/76
[2018-02-11] MEDS: LANSOPRAZOLE 30 MG CAPSULE PO SCH (05:52)
[2018-02-11 07:55] VITALS: BP 128/75
[2018-02-11] MEDS: BACLOFEN 10 MG TABLET PO SCH ×3 (09:20→20:18)
[2018-02-11] MEDS: CETIRIZINE HCL 10 MG TABLET PO SCH (09:20)
[2018-02-11] MEDS: MULTIVITAMINS WITH MINERALS, THERAPEUTIC TABLET PO SCH (09:20)
[2018-02-11] MEDS: ATORVASTATIN CALCIUM 20 MG TABLET PO SCH (09:20)
[2018-02-11] MEDS: DOCUSATE SODIUM 100 MG CAPSULE PO SCH ×2 (09:20→20:18)
[2018-02-11] MEDS: METOPROLOL TARTRATE 25 MG TABLET PO SCH ×4 (09:20→20:18)
[2018-02-11] MEDS: LACTOBACILLUS ACIDOPHILUS/BULGARICUS TABLET PO SCH ×3 (09:20→20:18)
[2018-02-11] MEDS: APIXABAN 2.5 MG TABLET PO SCH ×2 (09:20→20:18)
[2018-02-11 12:23] VITALS: BP 138/76
[2018-02-11 15:45] VITALS: BP 111/68
[2018-02-11 20:16] VITALS: BP 114/60
[2018-02-11] MEDS: MIRTAZAPINE 15 MG TABLET PO SCH (20:18)
[2018-02-11] MEDS: SENNA 187 MG TABLET PO SCH (20:18)
[2018-02-11 23:15] VITALS: BP 118/64
[2018-02-12] MEDS: LANSOPRAZOLE 30 MG CAPSULE PO SCH (06:47)
[2018-02-12 07:30] VITALS: BP 127/72
[2018-02-12 08:30] VITALS: BP 123/82
[2018-02-12] MEDS: DOCUSATE SODIUM 100 MG CAPSULE PO SCH ×2 (09:19→20:57)
[2018-02-12] MEDS: METOPROLOL TARTRATE 25 MG TABLET PO SCH ×4 (09:19→20:57)
[2018-02-12] MEDS: BACLOFEN 10 MG TABLET PO SCH ×3 (09:19→20:57)
[2018-02-12] MEDS: MULTIVITAMINS WITH MINERALS, THERAPEUTIC TABLET PO SCH (09:19)
[2018-02-12] MEDS: APIXABAN 2.5 MG TABLET PO SCH ×2 (09:19→20:57)
[2018-02-12] MEDS: LACTOBACILLUS ACIDOPHILUS/BULGARICUS TABLET PO SCH ×3 (09:19→20:57)
[2018-02-12] MEDS: CETIRIZINE HCL 10 MG TABLET PO SCH (09:19)
[2018-02-12] MEDS: ATORVASTATIN CALCIUM 20 MG TABLET PO SCH (09:19)
[2018-02-12 12:30] VITALS: BP 113/65
[2018-02-12 15:56] VITALS: BP 124/72
[2018-02-12 20:54] VITALS: BP 113/67
[2018-02-12] MEDS: SENNA 187 MG TABLET PO SCH (20:57)
[2018-02-12] MEDS: MIRTAZAPINE 15 MG TABLET PO SCH (20:57)
[2018-02-13] VITALS: BP 117/67
[2018-02-13] MEDS: LANSOPRAZOLE 30 MG CAPSULE PO SCH (06:13)
[2018-02-13] MEDS ORDERED: LANS30 PO (07:05)
[2018-02-13 07:20] VITALS: BP 127/72
[2018-02-13] MEDS: ATORVASTATIN CALCIUM 20 MG TABLET PO SCH (07:51)
[2018-02-13] MEDS: APIXABAN 2.5 MG TABLET PO SCH ×2 (07:51→20:48)
[2018-02-13] MEDS: CETIRIZINE HCL 10 MG TABLET PO SCH (07:51)
[2018-02-13] MEDS: DOCUSATE SODIUM 100 MG CAPSULE PO SCH ×2 (07:51→20:47)
[2018-02-13] MEDS: LACTOBACILLUS ACIDOPHILUS/BULGARICUS TABLET PO SCH ×3 (07:51→20:46)
[2018-02-13] MEDS: MULTIVITAMINS WITH MINERALS, THERAPEUTIC TABLET PO SCH (07:51)
[2018-02-13] MEDS: BACLOFEN 10 MG TABLET PO SCH ×3 (07:51→20:47)
[2018-02-13] MEDS: METOPROLOL TARTRATE 25 MG TABLET PO SCH ×4 (07:51→20:47)
[2018-02-13 12:30] VITALS: BP 120/70
[2018-02-13 15:46] VITALS: BP 111/68
[2018-02-13 20:35] VITALS: BP 113/61
[2018-02-13] MEDS: MIRTAZAPINE 15 MG TABLET PO SCH (20:46)
[2018-02-13] MEDS: SENNA 187 MG TABLET PO SCH (20:48)
[2018-02-13 23:00] VITALS: BP 115/64
[2018-02-14] MEDS: LANSOPRAZOLE 30 MG CAPSULE PO SCH (06:03)
[2018-02-14 07:10] VITALS: BP 123/73
[2018-02-14] MEDS: CETIRIZINE HCL 10 MG TABLET PO SCH (08:10)
[2018-02-14] MEDS: METOPROLOL TARTRATE 25 MG TABLET PO SCH ×4 (08:10→20:51)
[2018-02-14] MEDS: MULTIVITAMINS WITH MINERALS, THERAPEUTIC TABLET PO SCH (08:10)
[2018-02-14] MEDS: APIXABAN 2.5 MG TABLET PO SCH ×2 (08:10→20:50)
[2018-02-14] MEDS: DOCUSATE SODIUM 100 MG CAPSULE PO SCH ×2 (08:10→20:50)
[2018-02-14] MEDS: ATORVASTATIN CALCIUM 20 MG TABLET PO SCH (08:10)
[2018-02-14] MEDS: LACTOBACILLUS ACIDOPHILUS/BULGARICUS TABLET PO SCH ×3 (08:10→20:50)
[2018-02-14] MEDS: BACLOFEN 10 MG TABLET PO SCH ×3 (08:10→20:50)
[2018-02-14 13:25] VITALS: BP 140/69
[2018-02-14 15:38] VITALS: BP 107/62
[2018-02-14 20:48] VITALS: BP 118/81
[2018-02-14] MEDS: SENNA 187 MG TABLET PO SCH (20:50)
[2018-02-14] MEDS: MIRTAZAPINE 15 MG TABLET PO SCH (20:51)
[2018-02-15 00:20] VITALS: BP 107/69
[2018-02-15] MEDS: LANSOPRAZOLE 30 MG CAPSULE PO SCH (05:53)
[2018-02-15 07:05] VITALS: BP 130/69
[2018-02-15] MEDS: MULTIVITAMINS WITH MINERALS, THERAPEUTIC TABLET PO SCH (08:06)
[2018-02-15] MEDS: BACLOFEN 10 MG TABLET PO SCH ×3 (08:07→20:55)
[2018-02-15] MEDS: METOPROLOL TARTRATE 25 MG TABLET PO SCH ×4 (08:07→20:55)
[2018-02-15] MEDS: APIXABAN 2.5 MG TABLET PO SCH ×2 (08:07→20:55)
[2018-02-15] MEDS: LACTOBACILLUS ACIDOPHILUS/BULGARICUS TABLET PO SCH ×3 (08:07→20:55)
[2018-02-15] MEDS: CETIRIZINE HCL 10 MG TABLET PO SCH (08:07)
[2018-02-15] MEDS: DOCUSATE SODIUM 100 MG CAPSULE PO SCH ×2 (08:07→20:55)
[2018-02-15] MEDS: ATORVASTATIN CALCIUM 20 MG TABLET PO SCH (08:07)
[2018-02-15 13:45] VITALS: BP 120/86
[2018-02-15 15:31] VITALS: BP 123/72
[2018-02-15 20:50] VITALS: BP 101/60
[2018-02-15] MEDS: SENNA 187 MG TABLET PO SCH (20:55)
[2018-02-15] MEDS: MIRTAZAPINE 15 MG TABLET PO SCH (20:55)
[2018-02-15 23:05] VITALS: BP 118/64
[2018-02-16] MEDS ORDERED: METO25 PO (03:02)
[2018-02-16] MEDS ORDERED: MIRT15 PO (03:07)
[2018-02-16] MEDS ORDERED: ACID1TAB8 PO (03:07)
[2018-02-16] MEDS ORDERED: CETI-290 PO (03:07)
[2018-02-16] MEDS ORDERED: MULT-1239 PO (03:18)
[2018-02-16] MEDS: LANSOPRAZOLE 30 MG CAPSULE PO SCH (05:58)
[2018-02-16 07:24] VITALS: BP 145/70
[2018-02-16 08:30] VITALS: BP 142/84
[2018-02-16] MEDS: METOPROLOL TARTRATE 25 MG TABLET PO SCH ×3 (09:00→13:30)
[2018-02-16] MEDS: APIXABAN 2.5 MG TABLET PO SCH (09:32)
[2018-02-16] MEDS: MULTIVITAMINS WITH MINERALS, THERAPEUTIC TABLET PO SCH (09:32)
[2018-02-16] MEDS: BACLOFEN 10 MG TABLET PO SCH (09:32)
[2018-02-16] MEDS: LACTOBACILLUS ACIDOPHILUS/BULGARICUS TABLET PO SCH (09:32)
[2018-02-16] MEDS: ATORVASTATIN CALCIUM 20 MG TABLET PO SCH (09:32)
[2018-02-16] MEDS: DOCUSATE SODIUM 100 MG CAPSULE PO SCH (09:32)
[2018-02-16] MEDS: CETIRIZINE HCL 10 MG TABLET PO SCH (09:38)
[2018-02-16 13:00] VITALS: BP 127/78
[2018-02-16 13:05] VITALS: BP 143/59
== END 2018-02-16 15:15 | disposition home health service (06) | DRG 193 ==
LOC: 2WR 19:40
PROVIDERS: ADMIT Physical Medicine & Rehabilitation; ATTEND Physical Medicine & Rehabilitation
DX: J18.9 Pneumonia, unspecified organism (principal); E43 Unspecified severe protein-calorie malnutrition; N17.9 Acute kidney failure, unspecified; I69.351 Hemiplegia and hemiparesis following cerebral infarction affecting right dominant side; K21.9 Gastro-esophageal reflux disease without esophagitis; J38.00 Paralysis of vocal cords and larynx, unspecified; R26.9 Unspecified abnormalities of gait and mobility; E78.5 Hyperlipidemia, unspecified; D64.9 Anemia, unspecified; E11.22 Type 2 diabetes mellitus with diabetic chronic kidney disease; N18.9 Chronic kidney disease, unspecified; F03.90 Unspecified dementia, unspecified severity, without behavioral disturbance, psychotic disturbance, mood disturbance, and anxiety; F32.9 Major depressive disorder, single episode, unspecified; G89.29 Other chronic pain; I12.9 Hypertensive chronic kidney disease with stage 1 through stage 4 chronic kidney disease, or unspecified chronic kidney disease; I25.10 Atherosclerotic heart disease of native coronary artery without angina pectoris; I48.2 Chronic atrial fibrillation; J30.9 Allergic rhinitis, unspecified; R49.0 Dysphonia; K59.00 Constipation, unspecified; R13.12 Dysphagia, oropharyngeal phase; R32 Unspecified urinary incontinence; Z93.1 Gastrostomy status; Z91.013 Allergy to seafood
CPT/HCPCS: 74230; 82652; 83036; 83540; 83550; 83735; 84100; 84153; 84443; 85651; 87081; 90471; 92507; 92508; 92526; 92610; 92611; 93005; 97110; 97112; 97116; 97150; 97163; 97167; 97530; 97535; 99285; 99366; 99368; Q0162